=== PATIENT | male | born 1985 ===

== ENCOUNTER 2022-05-26 02:35 | Emergency (ER) | payer MEDICAID, SELFPAY ==
[2022-05-26 02:34] VITALS: BP 180/90; PULSE 107; RESP 16; TEMP 36.6; O2SAT 98
--- NOTE | 2022-05-26 02:54 | ED.GENADUL_ITS ---
Discharge Plan Disposition Patient Disposition: HOME Condition: Stable Discharge Details Clinical Impression: Adult general medical exam ED Provider: Jamie Vance Discharge Instructions Additional Instructions: follow up with your primary care provider as needed. Your blood pressure was elevated here today which could be from the stress of the situation but should be rechecked in the outpatient setting you had no deformities of your joints to make a broken bone likely. If you have pain that is continuing follow up with your primary care provider Medical Decision Making 37 yo male who denies chronic medical problems comes in after he was arrested. He lives in [facility] and was here visiting a friend. He had a warrant out and was arrested tonight. He started to feel anxious about this and started to state he couldn't walk. There was a report of him stating he had a seizure though bystanders deny seizure like activity and had no loc. He tells me he didn't have a seizure and was trying to get to the hospital because he didn't want to be arrested. During exam he would the majority time talk about his legal issues which I had to repeatedly advise I couldn't help with. He denies headache, chest pain, dyspnea, abdominal pain, fevers, chills. He is hypertensive but has no symptoms of end organ damage such as headache, chest pain or dyspnea and is likely chronic or due to the stressful situation he is in. He did complain of wrist pain where his cuffs where, has full rom of the wrists themselves and no deformities, normal sensation and no bony tenderness. He did not have any other medical complaints so did not feel any testing or imaging was indicated. Was advised to have his bp rechecked and followed, return precautions given Differential Diagnosis Differential Diagnosis: anxiety, stress response HPI General Mode of arrival: ambulatory . Date/Time Provider Initiated Documentation: 05/26/22 02:41 . Limitations to Documentation: no limitations . Information obtained by: patient . History of Present Illness 37 year old M presents to the emergency department with the chief complaint of I got arrested, Patient started experiencing this hour(s) (1) and it has been constant. No relieving factors improve symptom(s), No exacerbating factors reported . Patient did receive the following treatments prior to arrival, none Related Data Allergies Allergy/AdvReac Type Severity Reaction Status Date / Time No Known Allergies Allergy Unverified 05/26/22 02:46 General Stated Complaint: Seizure ELLIE: 3 Review of Systems All systems reviewed & are unremarkable except as noted in HPI and below Constitutional Constitutional: Denies chills, Denies fever(s) and Denies weakness Eyes Eyes: Denies loss of vision ENT Ears, Nose, Mouth, and Throat: Denies change in voice Cardiovascular Cardiovascular: Denies chest pain and Denies dyspnea Respiratory Respiratory: Denies cough and Denies dyspnea Gastrointestinal Gastrointestinal: Denies abdominal pain, Denies nausea and Denies vomiting Neurologic Neurologic: Denies loss of vision and Denies weakness PFSH All Active Problems (Updated 05/26/22 @ 02:55 by Jamie Vance MD) Adult general medical exam (Acute) Social History Smoking/Tobacco Use Status: Current every day Tobacco Type: cigarettes Smoking risk assessment performed?: Yes Drug use: Occasionally Substance use type: marijuana Exam Const General: no acute distress Orientation: alert HENMT Head: normal to inspection Ears: external ears normal General nose exam: external nose normal Mouth: moist mucous membranes Eyes General: appearance normal, both eyes and all related structures Neck Neck: normal visual inspection Resp Effort & Inspection: normal respiratory effort and able to speak in complete sentences Cardio Rate: regular rate Skin General skin exam: no rashes or lesions noted Neuro General: patient alert and patient oriented x3 Extrem General: normal to inspection, full ROM and capillary refill normal Psych Mental Status: mental status grossly normal Course Vital Signs Vital signs: Vital Signs Temperature 36.6 C 05/26/22 02:34 Pulse 107 H 05/26/22 02:34 Respiratory Rate 16 05/26/22 02:34 Blood Pressure 180/90 H 05/26/22 02:34 Pulse Oximetry 98 05/26/22 02:34 Temperature 36.6 C 05/26/22 02:34 Temperature Source Temporal Artery Scan 05/26/22 02:34 Pulse 107 H 05/26/22 02:34 Respiratory Rate 16 05/26/22 02:34 Respiratory Effort 05/26/22 02:43 Blood Pressure 180/90 H 05/26/22 02:34 Blood Pressure Position Sitting 05/26/22 02:34 Pulse Oximetry 98 05/26/22 02:34 Oxygen Delivery Method Room Air 05/26/22 02:34 Oxygen Flow Rate 0 05/26/22 02:34 Pain Level 10 05/26/22 02:34 Comment 05/26/22 02:34 PAWSS Have you Been Recently Intoxicated or Drunk Within the Last 30 days?: Yes Have you Ever Experienced Previous Episodes of Alcohol Withdrawal?: No Have you ever Experienced Withdrawal Seizures?: No Have you ever Experienced Delirium Tremens(DT)s?: Yes Have you ever undergone Alcohol Rehabilitation Treatment (i.e, inpt ot outpatient treatment programs)?: Yes Have you ever Experienced Blackouts?: Yes Have you ever Combined Alcohol with other Downers within the last 90 days?: Yes Have you ever Combined Alcohol with any other Substance of Abuse during the last 90 days?: Yes Positive Blood Alcohol level on Presentation? [PCS.BAL]: Yes Result: 7
[2022-05-26 03:14] VITALS: BP 123/69; PULSE 96; RESP 16; TEMP 36.6; O2SAT 95
== END 2022-05-26 03:06 | disposition home or self-care (01) ==
PROVIDERS: Emergency Provider Emergency Medicine
DX: Z04.89 Encounter for examination and observation for other specified reasons (principal); R03.0 Elevated blood-pressure reading, without diagnosis of hypertension; M25.531 Pain in right wrist; F17.210 Nicotine dependence, cigarettes, uncomplicated
CPT/HCPCS: 99281

== ENCOUNTER 2022-05-29 18:13 | Emergency (ER) | payer MEDICAID, SELFPAY ==
[2022-05-29 18:23] VITALS: BP 151/99; PULSE 108; RESP 18; TEMP 36.3; O2SAT 99
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
[2022-05-29 20:06] LABS: Abs Immature Grans 0.03 10^3/uL (0.0-0.06); Absolute Basophil Count 0.02 10^3/uL (0.0-0.2); Absolute Eosinophil Count 0.02 10^3/uL (0.0-0.7); Absolute Lymphocyte Count 1.26 10^3/uL (1.2-3.4); Absolute Monocyte Count 0.54 10^3/uL (0.1-0.8); Absolute Neutrophil Count 5.73 10^3/uL (1.2-6.7); Basophils % 0.3; Eosinophils % 0.3; HCT 39.3 % (40.0-50.0); HGB 13.4 g/dL (13.5-17.5); Immature Grans % 0.4; Lymphocytes % 16.6; MCH 32.8 pg (27.0-33.0); MCHC 34.1 % (32.0-36.0); MCV 96 fL (80-95); Monocytes % 7.1; Neutrophils % 75.3; Platelet Count 261 10^3/uL (130-400); RBC 4.09 10^6/uL (4.36-5.78); RDW 13.1 % (11.8-14.1); RDW-SD 46.2 fL
[2022-05-29 20:31] LABS: Salicylate 3.1 mg/dL (<2.8)
[2022-05-29 20:34] LABS: Acetaminophen < 2 ug/mL (10-30)
[2022-05-29 20:35] LABS: ALT 159 U/L (16-63); AST 91 U/L (15-37); Albumin 4.4 g/dL (3.4-5.0); Alkaline Phosphatase 68 U/L (46-116); Anion Gap 6.7 mmol/L (3-11); BUN 7 mg/dL (7-18); Bilirubin, Total 0.5 mg/dL (0.2-1.0); CO2 32.3 mmol/L (21.0-32.0); CREATININE 0.9 mg/dL (0.70-1.30); Calcium 9.7 mg/dL (8.5-10.1); Chloride 101 mmol/L (98-107); ETHANOL BLOOD < 3.0 mg/dL (<10); Estimated GFR 113.51 (mL/min/1.73m2); Glucose 101 mg/dL (74-106); Potassium 3.8 mmol/L (3.5-5.1); Sodium 140 mmol/L (136-145); Total Protein 9.2 g/dL (6.4-8.2)
[2022-05-29 21:54] LABS: Source Nasal/Nares
[2022-05-29] MEDS: cloNIDine 0.1 MG TAB PO (22:08)
[2022-05-29] MEDS: clonazePAM 1 MG TAB PO (22:09)
[2022-05-29 22:10] LABS: *AMPHETAMINES SCREEN URINE Positive (Negative); *BARBITURATES SCREEN URINE Negative (Negative); *BENZODIAZEPINES SCREEN URINE Positive (Negative); Cannabinoids THC Positive (Negative); Cocaine Screen,Urine Negative (Negative); METHADONE URINE SCREEN Negative (Negative); OPIATES URINE SCREEN Negative (Negative); Tricyclic Antidepressants Negative (Negative)
[2022-05-29 22:27] LABS: COVID-19 PCR Negative (Negative)
--- NOTE | 2022-05-30 08:01 | W.EDPROG ---
Date of service: 05/30/22 Time of Service: 08:00 Medical Decision Making 0800 --please see previous providers notes for initial presentation, exam and plan. Case endorsed to follow-up with mental health this morning regarding disposition. Patient would like to restart his antidepressant. He is taking Pristiq and states he has not had past 5 days. Discussed with pharmacy and this is not on the formulary but states that it is a metabolite of Effexor. Dose of Effexor 75 mg p.o. once daily ordered per discussion with pharmacy. Patient also states that he has been drinking 1/5 of whiskey daily for the past year which has worsened since his father committed suicide less than 1 year ago. Patient states his last drink was 4 to 5 days ago as he was not able to drink [facility]. Patient denies any signs or symptoms of withdrawal. He does admit to history of IV heroin use, last use 3 years ago and has been on the Sublocade injection for the past 2 years. Patient appears comfortable and relaxed without signs of withdrawal. 1999 --patient cooperative today with no issues. Mental health evaluated and possible availability at [place] or [place] tomorrow. Case endorsed to Dr. Shaikh to continue to monitor overnight while awaiting placement. Medical Records Medical records reviewed: Yes I reviewed the patient's medical records. Sign Out Sign Out Data: Sign Out Comment: Voluntary, depression, feels that if he goes home to his hotel he will be suicidal or get into drug/alcohol. Mental health requests voluntary admission here. Mental health will plan disposition. Follow-up in the morning with pharmacy for alternative to his normal SSRI. Last updated by Christoph Skaggs DO at 05/29/22 22:33 Sign Out Comment: VOluntary psych. Depressed Last updated by Mert Sun MD at 05/30/22 06:51 Sign Out Comment: Voluntary. Medically cleared. No issues today. Awaiting placement. Last updated by Maia Reynolds DO at 05/30/22 19:40 Discharge Plan Disposition Patient Disposition: STILL A PATIENT Condition: Good Discharge Details Clinical Impression: Depression Primary Care Provider: Unknown,Unknown ED Provider: Javier Shaikh Home Meds and New Rx's Prescriptions: No Action clonidine HCl 0.1 mg Tablet 0.1 mg PO DAILY clonazepam 1 mg Tablet 1 mg PO TID desvenlafaxine succinate [Pristiq] 100 mg Tablet Extended Release 24 Hr 100 mg PO DAILY Sublocade 300 mg/1.5 mL Solution, Extended Rel Syringe 300 mg SUBCUT QMONTH
[2022-05-30] MEDS: Venlafaxine 75 MG CAPCR PO (08:34)
[2022-05-30] MEDS: clonazePAM 1 MG TAB PO ×3 (08:34→22:03)
--- NOTE | 2022-05-30 13:34 | PDOC.ERCMPRO ---
- If Service Date Differs Date of service: 05/30/22 Time of Service: 13:34 Care Management Progress Note Per chart review, patient is not presenting with SI/HI. Father committed suicide within the last year which is concerning and elevates risk for self harm. Hx of polysubstance use, DURAN including daily alcohol intake. Per chart review, patient feels SI, DURAN will be exacerbated by returning to current housing in hotel. Per MD: Mental health has seen and assessed the patient, they state that the patient is requesting voluntary admission. They feel that this would get him the resources he needs. Do not anticipate facilities will be willing to admit patient for case management needs, as he is not currently presenting with SI/HI. Furthermore does not appear he requires safety planning or CPSO; CM will coordinate safety plan if circumstances change.
[2022-05-30] MEDS: Nicotine 2 MG GUM CH (15:01)
[2022-05-30] MEDS: cloNIDine 0.1 MG TAB PO (22:03)
[2022-05-31 08:20] VITALS: BP 122/78; PULSE 75; O2SAT 95
[2022-05-31] MEDS: clonazePAM 1 MG TAB PO ×2 (08:29→12:24)
[2022-05-31] MEDS: Venlafaxine 75 MG CAPCR PO (08:29)
--- NOTE | 2022-05-31 09:52 | ED.PROG_ITS ---
Date of service: 05/31/22 Time of Service: 08:00 Medical Decision Making 0800 -- no reported events overnight. Awaiting placement. 944 -- Case discussed with [place] psychiatrist Dr. Gomez who accepts pt for transfer. Medical Records Medical records reviewed: Yes I reviewed the patient's medical records. Sign Out Sign Out Data: Sign Out Comment: Voluntary, depression, feels that if he goes home to his hotel he will be suicidal or get into drug/alcohol. Mental health requests voluntary admission here. Mental health will plan disposition. Follow-up in the morning with pharmacy for alternative to his normal SSRI. Last updated by Christoph Skaggs DO at 05/29/22 22:33 Sign Out Comment: VOluntary psych. Depressed Last updated by Mert Sun MD at 05/30/22 06:51 Sign Out Comment: Voluntary. Medically cleared. No issues today. Awaiting placement. Last updated by Maia Reynolds DO at 05/30/22 19:40 Sign Out Comment: Voluntary. Awaiting placement Last updated by Javier Shaikh MD at 05/31/22 07:19 Discharge Plan Disposition Patient Disposition: [facility] Condition: Good Discharge Details Clinical Impression: Depression Primary Care Provider: Unknown,Unknown ED Provider: Maia Reynolds Home Meds and New Rx's Prescriptions: No Action clonidine HCl 0.1 mg Tablet 0.1 mg PO DAILY clonazepam 1 mg Tablet 1 mg PO TID desvenlafaxine succinate [Pristiq] 100 mg Tablet Extended Release 24 Hr 100 mg PO DAILY Sublocade 300 mg/1.5 mL Solution, Extended Rel Syringe 300 mg SUBCUT QMONTH
[2022-05-31] MEDS: Nicotine 2 MG GUM CH (12:20)
--- NOTE | 2022-05-31 16:47 | CMPROGNOTE_ITS ---
- If Service Date Differs Date of service: 05/31/22 Time of Service: 16:47 Care Management Progress Note Jc received a bed offer from [facility] for a voluntary inpatient admission. Transportation was via [facility], coordinated by nursing resident services supervisor. He was discharged at 12:30pm.
--- NOTE | 2022-05-31 16:47 | PDOC.ERCMPRO ---
- If Service Date Differs Date of service: 05/31/22 Time of Service: 16:47 Care Management Progress Note Jc received a bed offer from [facility] for a voluntary inpatient admission. Transportation was via [facility], coordinated by nursing extension supervisor. He was discharged at 12:30pm.
== END 2022-05-31 12:31 | disposition short-term general hospital (02) ==
PROVIDERS: Student in an Organized Health Care Education/Training Program; Emergency Provider Physician Assistant
DX: F32.9 Major depressive disorder, single episode, unspecified (principal); R74.01 Elevation of levels of liver transaminase levels; F17.210 Nicotine dependence, cigarettes, uncomplicated; Z20.822 Contact with and (suspected) exposure to COVID-19
CPT/HCPCS: 36415; 80053; 80307; 87635; 99285; 80320; 80329; 84443; 85025